=== PATIENT | female | born 1950 | race Caucasian/White ===

== ENCOUNTER → 2023-12-04 08:19 | Outpatient (REF) | payer MEDICARE, OTHER, SELFPAY | LOC: RAD 08:19 | PROVIDERS: ATTENDING PHYSICIAN Family Medicine | DX: M81.0 Age-related osteoporosis without current pathological fracture (principal) | CPT/HCPCS: 77080 ==

== ENCOUNTER → 2024-07-04 11:01 | Outpatient (REF) | payer OTHER, MEDICARE, SELFPAY | LOC: DHCBC/DCA 11:01 | PROVIDERS: ATTENDING PHYSICIAN Physician Assistant Medical; FAMILY PHYSICIAN Family Medicine | DX: R07.9 Chest pain, unspecified (principal); R06.09 Other forms of dyspnea | CPT/HCPCS: 78452; 93017; A9500 ==

== ENCOUNTER → 2024-07-11 22:00 | Outpatient (REF) | payer OTHER, MEDICARE, SELFPAY | LOC: DHSLP 22:00 | PROVIDERS: ATTENDING PHYSICIAN Physician Assistant Medical; FAMILY PHYSICIAN Family Medicine | DX: G47.30 Sleep apnea, unspecified (principal); R06.83 Snoring | CPT/HCPCS: 95800 ==

== ENCOUNTER → 2024-07-24 11:13 | Outpatient (REF) | payer OTHER, SELFPAY | LOC: HWRCS 11:13 | PROVIDERS: ATTENDING PHYSICIAN Physician Assistant Medical; FAMILY PHYSICIAN Family Medicine | DX: R07.9 Chest pain, unspecified (principal); R06.09 Other forms of dyspnea; Z85.3 Personal history of malignant neoplasm of breast | CPT/HCPCS: 93306 ==

== ENCOUNTER → 2024-11-04 06:53 | Outpatient (REF) | payer OTHER, SELFPAY | LOC: RAD 06:53 | PROVIDERS: ATTENDING PHYSICIAN Specialist; FAMILY PHYSICIAN Family Medicine | DX: N20.0 Calculus of kidney (principal) | CPT/HCPCS: 76775 ==

== ENCOUNTER → 2025-02-11 10:57 | Outpatient (REF) | payer OTHER, SELFPAY | LOC: RAD 10:57 | PROVIDERS: ATTENDING PHYSICIAN Internal Medicine Hematology & Oncology; FAMILY PHYSICIAN Family Medicine | DX: C50.911 Malignant neoplasm of unspecified site of right female breast (principal); C50.912 Malignant neoplasm of unspecified site of left female breast; M81.0 Age-related osteoporosis without current pathological fracture; Z79.811 Long term (current) use of aromatase inhibitors; C7A.011 Malignant carcinoid tumor of the jejunum | CPT/HCPCS: 71260; 74177; Q9967 ==

== ENCOUNTER → 2025-02-27 07:14 | Outpatient (REF) | payer OTHER, SELFPAY | LOC: MRI 07:14 | PROVIDERS: ATTENDING PHYSICIAN Internal Medicine Hematology & Oncology; FAMILY PHYSICIAN Family Medicine | DX: C50.911 Malignant neoplasm of unspecified site of right female breast (principal); C50.912 Malignant neoplasm of unspecified site of left female breast; C7A.011 Malignant carcinoid tumor of the jejunum; Z79.811 Long term (current) use of aromatase inhibitors; M81.0 Age-related osteoporosis without current pathological fracture; R93.5 Abnormal findings on diagnostic imaging of other abdominal regions, including retroperitoneum | CPT/HCPCS: 74183; A9575 ==

== ENCOUNTER → 2025-03-10 09:07 | Outpatient (REF) | payer OTHER, SELFPAY ==
[2025-03-10 09:30] LABS: Hematocrit 44.5 % (37.0-47.0); Hemoglobin 14.6 g/dL (12.0-16.0); Mean Corp Hgb Conc. 32.8 g/dL (33.0-37.0); Mean Corpuscular Volume 95.7 fL (81.0-99.0); Nucleated Red Blood Cells % 0 %; Platelet Count 293 10^3/uL (130-400); Red Cell Dist. Width 12.8 % (11.5-14.5)
[2025-03-10 09:40] LABS: INR 0.87; PT 12.2 Sec (11.4-14.6)
[2025-03-10 09:59] VITALS: BP 118/69; BP_SYST 71
[2025-03-10 11:25] VITALS: BP 107/68
== END ==
LOC: RADI 09:07
PROVIDERS: ATTENDING PHYSICIAN Internal Medicine Hematology & Oncology; FAMILY PHYSICIAN Family Medicine
DX: C78.7 Secondary malignant neoplasm of liver and intrahepatic bile duct (principal); R18.8 Other ascites; Z53.8 Procedure and treatment not carried out for other reasons; C50.911 Malignant neoplasm of unspecified site of right female breast; C50.912 Malignant neoplasm of unspecified site of left female breast
CPT/HCPCS: 36415; 76380; 76705; 85025; 85610

== ENCOUNTER 2025-03-10 22:49 | Observation (INO) | payer OTHER, SELFPAY ==
[2025-03-10 11:57] VITALS: BMI 26.5
[2025-03-10 12:00] VITALS: BP 116/63
--- NOTE | 2025-03-10 12:42 | ED.GENMED ---
History of Present Illness
General
Chief Complaint: Abdominal Symptoms
Source: patient and physician (IR Dr. Husain saw possible hemoperitoneum on limited CT)
Exam Limitations: none
Time Seen by Provider: 03/10/25 12:34
Nursing documentation reviewed up to this point in time: agreed with
History of Present Illness
History of Present Illness:
Note:
CHIEF COMPLAINT(S)
Concern for abnormal findings on imaging and history of hormonal treatment.
HISTORY OF PRESENT ILLNESS
The patient is a 57-year-old female who presents with concerns related to recent imaging findings and past hormonal treatments. Approximately a month ago, fluid was noted in the abdomen during imaging. There is a concern that the fluid, which may
appear as blood, needs further evaluation. A biopsy is planned to ascertain the nature of these findings.
The patient has a history of being on hormonal medication for several years and mentioned plans for a PET scan and CAT scan for further evaluation. The recent changes in her insurance have affected scheduling these tests; however, a new and more
detailed scan with contrast is planned. The patient is also concerned about possible liver involvement, as suggested by a recent CAT scan.
CARE-UPDATE
03/13/25 - 06:[address] scan indicates hemoperitoneum and possible subcapsular hematoma. Admission planned for further evaluation and management.
Physical Exam
General: no apparent distress, not acutely ill
Neck: supple. no meningeal signs. normal posterior pharynx
Heart: s1/s2 regular rate and rhythm, no murmur. equal radial
pulses.
HEENT: Pupils equal round reactive to light, EOMI
Lungs: no acute respiratory distress. clear bilaterally
Abdomen: normal bowel sounds. not tender. no CVAT
Neuro: alert and oriented. no focal neurological deficits cranial nerves II through XII intact
Skin: no rash
Psychiatric: well kept. interactive and cooperative
Extremities: no edema. no calf tenderness. negative homans. good distal pulses
Disposition:
SUMMARY OF ENCOUNTER
The patient presented with concerns related to recent imaging findings, revealing subcapsular hematoma of the liver. She was seen in the emergency department to further evaluate and manage these findings. A CT scan was performed, which showed a
subcapsular hematoma but no active bleeding. The patients condition was stable, and there was no indication for administration of vitamin K.
DISPOSITION
Admit.
ASSESSMENT
Subcapsular hematoma of the liver, as indicated by the CT scan findings.
INDEPENDENT REVIEW OF LABS AND INTERPRETATION OF TESTS
My independent interpretation of the abdominal CT scan indicates a subcapsular hematoma of the liver without active bleeding.
MANAGEMENT OF THE PATIENTS CARE WAS DISCUSSED WITH
Hospitalists for admission due to findings on CT.
PLAN
Admission arranged for further evaluation and management of the subcapsular hematoma. Further specialty care and monitoring to be coordinated with the hospital team.
DIAGNOSIS
1. Liver hematoma, unspecified - ICD-10: S36.119A
Past History
Past History
ED Past Medical History: Cancer (Breast cancer), HTN, Hypercholesterolemia, Hypothyroidism and Other (Right axillary neuropathy)
ED Past Surgical History: Gynecological (b/l Mastectomy with reconstruction, ) and Other (Abdominoplasty with breast reconstruction)
Social History
Tobacco: Non-smoker
Alcohol: Occasional
Drug: None
Personal:
Living: with family
Employment: Retired
Family History
Family History: CAD
Phy Exam
Physical Exam
Physical Exam:
.
Course
Orders/Labs/Results
Orders:
Orders
03/10/25 12:41
CT Abd/pelvis W Iv Cont Urgent
Comment: portal venous and delayed phase
Reason For Exam: abdominal pain, possible subcapsular hematoma
03/10/25 16:20
Comprehensive Metabolic Panel Urgent
03/10/25 21:35
PTT Urgent
Prothrombin Time Urgent
03/10/25 22:18
Admit/Transfer Patient As Directed
Co-Sign Provider:
Level of Care: Observation services
Assign to:: Medical/Surgical
Physician / Group: gardenia guthrie
Diagnosis: abd fluid conc hemoperitoneum vs hepatic lesion fluid,ovaries enlarged
Reason for Hospitalization: abd fluid conc hemoperitoneum vs hepatic lesion fluid,ovaries enlarged
Code Status As Directed
Resuscitation Status: Full Code
03/10/25 22:22
PRN Pain Medication Management As Directed
May give lesser potent ordered pain med per pt: Yes
preference::
Protocol:: Medication orders for pain may be administered in a
manner that supports deferring to patient preference
when the pt is:
-Requesting an ordered lesser potent pain medication.
Least to most potent pain medications are defined as:
acetaminophen < NSAID < tramadol < opioids (morphine,
oxycodone, hydromorphone).
- Requesting a lesser dose of the same medication IF
ORDERED.
- Requesting a less intrusive route of administration
if both routes are prescribed by the provider (PO <
IV).
03/10/25 22:26
[facility] CONSULT Routine
Consulting Provider: Leander Husain
Was physician already notified: Yes
Procedure being ordered, including laterality if applicable: liver mass needs biopsy
Acknowledgement that appropriate orders are entered: Yes
03/11/25 00:08
Activity As Directed
Activity Level: As Tolerated
Pneumatic Compression Sleeves As Directed
Type: Knee high
Vital Signs As Directed
Frequency: Per unit guidelines
DX Deep Vein Thrombosis Video Routine
03/11/25 06:00
Levothyroxine [Synthroid] 125 mcg PO DAILY @ 0600
03/11/25 07:45
Complete Blood Count/With Diff IN AM
Comprehensive Metabolic Panel IN AM
03/11/25 08:00
Gabapentin [Neurontin] 300 mg PO BID
Triamterene/Hctz [Dyazide] 1 capsule PO DAILY
03/11/25 12:00
Amlodipine [Norvasc] 2.5 mg PO NOON
03/11/25 Dinner
Regular
At Your Request: Full Participation
03/11/25 18:00
Atorvastatin [Lipitor] 80 mg PO QPM
Lisinopril [Zestril] 40 mg PO QPM
03/12/25 06:52
Complete Blood Count/With Diff IN AM
Comprehensive Metabolic Panel IN AM
Abnormal Lab Results
03/10/25
16:20
BUN 20 H mg/dl
(7-17)
Total Bilirubin 1.4 H mg/dl
(0.2-1.3)
03/10/25 21:35
03/10/25 16:20
Vital Signs
Initial and Last Documented VS:
Initial Vital Signs
Temp Pulse Resp BP Pulse Ox
97.6 F 67 16 116/63 97
03/10/25 12:00 03/10/25 12:00 03/10/25 12:00 03/10/25 12:00 03/10/25 12:00
Last Documented Vital Signs
Temp Pulse Resp BP Pulse Ox
98.1 F 78 16 125/73 98
03/12/25 12:21 03/12/25 12:21 03/12/25 12:21 03/12/25 12:21 03/12/25 12:21
*Pulse Oximetry
SaO2: 97
Oxygen Mode of Delivery: Room air
Patient hypoxic: no
*Critical Care Note
Total Time (30-74mins, 75-104mins- exclusive of procedures): Not Applicable
ED Attending Note
-
Portions of this chart may have been created with voice recognition software.� Occasional wrong word or��sound alike� substitutions may have occurred due to the inherent limitations of voice recognition software.
Discharge Plan
Departure
Patient Disposition: Admit
Date of Disposition: 03/10/25
Time of Disposition: 21:23
Presentation/result/management discussed w/ accepting MD/DO: Hospitalist
Patient with high blood pressure during this ER visit?: Yes
Condition: Good
Discharge Problem:
Subcapsular hematoma of liver
Interventions
Interventions:
*Risk Screen - Suicide Last Done: 03/10/25 12:52
*General Assessment Last Done: 03/10/25 12:52
*Neglect/Abuse Screening Last Done: 03/10/25 12:52
*ED- Fall Risk Assessment Last Done: 03/10/25 12:52
*ED COVID-19 Vaccine History Last Done: 03/10/25 12:52
*Nursing Disposition Last Done: 03/10/25 23:55
JJ-Vsxclc-Jegqgreuva Assessment Last Done: 03/10/25 23:30
Discharge Date and Time
Discharge Date/Time: 03/10/25 23:55
[2025-03-10 13:00] VITALS: BP 102/70
[2025-03-10 14:00] VITALS: BP 110/64
[2025-03-10 17:43] LABS: ALT (SGPT) 19 U/L (0-35); AST (SGOT) 18 U/L (14-36); Albumin 4.1 g/dl (3.5-5.0); Alkaline Phosphatase 69 U/L (38-126); Blood Urea Nitrogen 20 mg/dl (7-17); Calcium 9.4 mg/dl (8.4-10.2); Carbon Dioxide 22 mmol/L (22-30); Chloride 106 mmol/L (98-107); Estimated Creatinine Clearance 62 ml/min; Glucose 99 mg/dl (70-99); Potassium 3.8 mmol/L (3.5-5.1); Sodium 135 mmol/L (135-145); Total Protein 6.8 g/dl (6.3-8.2); eGFR > 60.00
[2025-03-10 20:58] VITALS: BP 115/86
[2025-03-10 21:30] VITALS: BP 114/65
--- NOTE | 2025-03-10 21:39 | HPS.HSE ---
Addendum entered and electronically signed by Andres Botello MD 03/10/25 23:01:
This is an addendum to the H&P written by Carolyn Moreland on 03/10/2025. �Patient seen and examined by me with [employer].
74-year-old female past medical history of breast cancer status post bilateral mastectomy in 2012 with reconstruction, hypertension, hyperlipidemia, hypothyroidism, right axillary neuropathy, presenting with epigastric pain.
Patient was diagnosed with breast cancer in 2012. �Patient had outpatient CT scan last month which showed ill-defined hepatic lesion which was new. �MRI from 02/27 showed multifocal hepatic metastatic disease and patient was supposed to get IR biopsy
today.
Vital signs unremarkable.
Labs show chronic leukocytosis of 12.8.
CT abdomen pelvis shows slightly increased fluid in the upper abdomen possibly hemoperitoneum. �Ascites from metastatic disease cannot be excluded. �Moderate small bowel wall thickening in the left abdomen pelvis possibly inflammation or infection
or ischemia (enteritis). �Mild diffuse bladder wall thickening.
Mildly enlarged ovaries with appearance of possible enhancing masses bilaterally.
Clinically patient with likely ascites from liver metastases could be metastatic from breast cancer. �No symptoms suggesting enteritis. �General surgery was consulted and recommended monitoring hemoglobin. �IR consulted for biopsy and or
paracentesis.
Check pelvic ultrasound to evaluate ovarian masses.
Original Note:
Family Physician
-
Family Physician: Maya Burns
Chief Complaint
-
abd pain
History of Present Illness
74-year-old female complaining of right upper to left upper abdominal pain today while at interventional radiology pending biopsy of a liver mass. She was sent over by IR due to a fluid collection on MRI from 911 for evaluation of hemoperitoneum.
She denies fever, chills, chest pain, palpitations, cough, shortness of breath, nausea, vomiting, diarrhea, urinary symptoms.
She has past medical history breast cancer status post bilateral mastectomy 2012 with reconstruction, HTN, HLD, hypothyroidism, right right axillary neuropathy prior alcohol abuse 3 to 4 glasses of wine a day stopped 1 month ago
Medical History
Past Medical History
Past Medical History: Reports Other
Additional Past Medical History:
breast cancer status post bilateral mastectomy 2012 with reconstruction
HTN
HLD
hypothyroidism
right right axillary neuropathy
prior alcohol abuse 3 to 4 glasses of wine a day stopped 1 month ago
Past Surgical History: Reports Other
Additional Past Surgical History:
section 1987
Right thyroidectomy 12/03/2007 bilateral breast biopsy December 2012
Bilateral mastectomy 01/11/2013 with reconstruction
Radiation and chemotherapy nodes removed right axillary
Lesion in small intestine benign removed by Dr. Jose Meza years ago
History of colonoscopy 2022 benign polypectomy
Social History
Tobacco: Non-smoker
Alcohol: Former (Drink 3 to 4 glasses of wine a day stopped 1 month ago January 2025)
Drug: None
Personal:
Living: With Family ()
Employment: Retired
Family History
Family History: Not pertinent
Allergies / Home Medications
Allergies reflects when Allergies were last updated in [facility].
Home Medications with original date entered in [facility]
Allergy/Medication List:
Allergies
Allergy/AdvReac Type Severity Reaction Status Date / Time
codeine (Codeine) Allergy difficulty Verified 03/10/25 12:05
breathing,
vision
blurring,
rapid heart
Home Medications
amlodipine 2.5 mg tablet 2.5 mg PO NOON ##0 12/29/15
atorvastatin 80 mg tablet 80 mg PO QPM High Cholesterol 07/06/23
gabapentin 300 mg capsule 300 mg PO BID mild Pain 07/06/23
lisinopril 40 mg tablet 40 mg PO QPM Blood Pressure 07/06/23
ibuprofen 200 mg tablet (Advil) 200 mg PO Q6HPRN PRN mild pain 03/10/25
levothyroxine 125 mcg tablet (Synthroid) 125 mcg PO DAILY 03/10/25
triamterene 37.5 mg-hydrochlorothiazide 25 mg tablet 1 tab PO DAILY 03/10/25
Review of Systems
-
History Source: Patient and Family ( at bedside )
A 12 point ROS was completed and negative except as noted: Yes
Constitutional: Denies Fever or Fatigue
EENT: Denies Sore Throat
Respiratory: Denies Cough or Trouble Breathing
Cardiac: Denies Chest Pain, Diaphoresis or Palpitations
Abdomen/GI: Reports Abdominal Pain (Across upper abdomen); Denies Nausea, Vomiting, Diarrhea or Constipated
: Denies Dysuria, Frequency, Flank Pain or Incontinence
Musculoskeletal: Denies Joint Pain or Edema
Skin: Denies Itching or Rash
Neurological: Denies Dizzy, Headache or Weakness
Endocrine: Reports No Symptoms
Hematologic/Lymphatic: Reports No Symptoms
Psych: Reports Calm
Physical Exam
Vital Signs
Vital Signs
Temp Pulse Resp BP Pulse Ox
97.6 F 85 20 115/86 98
03/10/25 12:00 03/10/25 20:58 03/10/25 20:58 03/10/25 20:58 03/10/25 20:58
Physical Exam
General: Comfortable and Conversant; No Pain, Fever or Chills
HEENT: NormoCephalic, Anicteric, Moist mucous membranes, Atraumatic, PERRLA, [place] Conjunctivae and No Ptosis
Respiratory: Clear; No Wheezes, Rales or Rhonchi
Cardiac: S1/S2 and Regular Rhythm; No Murmur, Rub, Gallop or Peripheral Edema
Breast: Deferred by me
GI: Soft, Non Distended, Normal Bowel Sounds and Tender (Across upper abdomen right and left)
Rectal: Deferred by Provider
Genito-urinary: Deferred by me
Musculoskeletal: No Clubbing, No Cyanosis and No Edema
Skin: Warm and Dry; No Rash
Neuro: AO x 3, No Motor Deficits, Nonfocal/grossly intact, Cranial Nerves Intact and No Sensory Deficits; No Slurred Speech, Facial Droop, Tremors or Sedated
Psych: Calm
Laboratory Results
-
03/10/25 16:20
Laboratory Results
Total Bilirubin 1.4 mg/dl (0.2-1.3) H 03/10/25 16:20
AST 18 U/L (14-36) 03/10/25 16:20
ALT 19 U/L (0-35) 03/10/25 16:20
Alkaline Phosphatase 69 U/L (38-126) 03/10/25 16:20
Impression/Plan
-
Impression/plan:
Admit to MedSurg
#Epigastric pain likely due to hemoperitoneum versus fluid from hepatic metastases
- Hgb 14.6 will monitor H&H
- Check coags
- Consult IR for biopsy of hepatic lesion
CT abdomen pelvis with IV contrast:
1. Slightly increased fluid in the upper abdomen possibly hemoperitoneum as suggested
before. Mild free fluid in the pelvis likely the same etiology.
2. Ascites from metastatic disease cannot be excluded.
3. Moderate small bowel wall thickening in the left abdomen and pelvis.
Differential diagnoses include inflammation, infection and ischemia.
4. Bilateral too small to contrast hypodense renal lesions likely benign cysts.
5. Mild diffuse bladder wall thickening. This can be seen with cystitis and bladder
outlet obstruction
6. Mildly enlarged ovaries with appearance of possible enhancing masses bilaterally.
Nonurgent pelvic ultrasound recommended when the patient is able.
7. New fluid now present in a small stable fat containing diaphragmatic hernia.
#Multifocal hepatic metastatic disease
Patient was due for IR biopsy today however CT was concerning for hemoperitoneum so was held off.
MRI 02/27/2025:
1. MULTIFOCAL HEPATIC METASTATIC DISEASE (largest 2.7 cm in the medial segment of the left lobe).
2. Mild hepatomegaly.
3. Mild chronic bilateral renal disease.
4. Severe discogenic degenerative disease at L5/S1.
#Chronic leukocytosis
WBC 12.8 appears baseline for patient
#HTN
Continue amlodipine 2.5 mg at noon, continue atorvastatin 80 mg every afternoon
Continue triamterene/HCTZ
#HLD
- Continue atorvastatin 80 mg every afternoon
#Hypothyroidism status post right thyroidectomy
- Continue levothyroxine 125 mcg p.o. daily
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
DVT prophylaxis
SCDs
Full code
[2025-03-10 22:16] LABS: INR 0.97; PT 13.2 Sec (11.4-14.6)
[2025-03-10 22:17] LABS: APTT 28.9 Sec (23.4-35.0)
[2025-03-10 23:17] VITALS: BP 118/57
[2025-03-11 00:02] LABS: Hematocrit 37.4 % (37.0-47.0); Hemoglobin 13.0 g/dL (12.0-16.0)
[2025-03-11 00:05] VITALS: BP 128/65; BMI 26.0
[2025-03-11] MEDS: TYLENOL 650 MG PO ×3 (00:38→17:57)
[2025-03-11] MEDS: SYNTHROID 125 MCG PO (05:45)
[2025-03-11 06:58] VITALS: BP 105/65
[2025-03-11] MEDS: NEURONTIN 300 MG PO ×2 (08:13→20:11)
[2025-03-11 08:42] LABS: Hematocrit 34.0 % (37.0-47.0); Hemoglobin 11.7 g/dL (12.0-16.0); Mean Corp Hgb Conc. 34.4 g/dL (33.0-37.0); Mean Corpuscular Volume 92.9 fL (81.0-99.0); Nucleated Red Blood Cells % 0 %; Platelet Count 262 10^3/uL (130-400); Red Cell Dist. Width 12.9 % (11.5-14.5)
[2025-03-11 08:52] LABS: ALT (SGPT) 16 U/L (0-35); AST (SGOT) 16 U/L (14-36); Albumin 4.0 g/dl (3.5-5.0); Alkaline Phosphatase 70 U/L (38-126); Blood Urea Nitrogen 16 mg/dl (7-17); Calcium 9.0 mg/dl (8.4-10.2); Carbon Dioxide 22 mmol/L (22-30); Chloride 107 mmol/L (98-107); Estimated Creatinine Clearance 62 ml/min; Glucose 100 mg/dl (70-99); Potassium 3.8 mmol/L (3.5-5.1); Sodium 138 mmol/L (135-145); Total Protein 6.2 g/dl (6.3-8.2); eGFR > 60.00
[2025-03-11] MEDS: DYAZIDE 1 CAPSULE PO (08:57)
[2025-03-11 09:45] LABS: Hepatitis C Antibody Negative (Negative)
--- NOTE | 2025-03-11 11:28 | W.PN.HOSP.TC ---
Today's Communication/Plan
-
Assessment / Plan
Assessment / Plan
General: No Apparent Distress, Comfortable and Conversant
HEENT: NormoCephalic, Moist mucous membranes, Atraumatic
Respiratory: Clear and Non Labored Respirations
Cardiac: S1/S2 and Regular Rhythm; No Rub or Gallop
GI: Soft, Non Tender, Non Distended and Normal Bowel Sounds
Musculoskeletal: No Edema, no deformity
Skin: Warm and dry
: NO [place]
Neuro: Awake, Alert, Nonfocal/grossly intact
Psych: Calm and Intact Judgment/Insight
Ms. Payne is a 74-year-old female with a medical history of breast cancer (status post bilateral mastectomy 2012 with reconstruction, chemo and radiation), hypertension, partial thyroidectomy (12/03/2007), acquired hypothyroidism, left obstructing
UPJ stone (06/2023, status post lithotripsy and stent), and hyperlipidemia who presented from outpatient IR due to concern for hemoperitoneum. She was scheduled for an IR biopsy of suspicious liver lesions noted on MRI 02/27/2025. However imaging in
the IR suite showed fluid around her liver and so biopsy was canceled. She was sent to the ED for further evaluation and was subsequently admitted to monitor her hemoglobin levels and management of possible hemoperitoneum.
Abdominal fluid:
- Concern for possible hemoperitoneum, alternatively could be malignant ascites
- Monitoring hemoglobin levels which have dropped from 14.6-11.7 in the past 24 hours although this is likely at least somewhat dilutional considering she has been given IV fluids
- Continue serial H&H, transfuse as needed
- If hemoglobin continues to drop we will check CT angiography of abdomen and pelvis
- Currently no plan for biopsy considering possibility of active bleeding
- Pelvic ultrasound pending for further evaluation of abnormalities on bilateral ovaries noted during CT imaging
History of breast cancer:
- Status post bilateral mastectomy 2012 with reconstruction, chemotherapy and radiation
- MRI on 02/27/2025 showed multifocal hepatic lesions concerning for malignancy
- IR biopsy canceled due to concern for bleeding as described above
- Will need outpatient oncology follow-up, biopsy as able
Hypertension:
- Chronic
- Holding home antihypertensive agents (amlodipine 2.5 mg, lisinopril 40 mg, triamterene-HCTZ) due to current hypotension, will restart as needed
Hypothyroidism:
- Acquired, status post partial thyroidectomy 12/03/2007
- Continue home levothyroxine 125 mcg daily
DVT prophylaxis: SCDs due to concern for bleeding
CODE STATUS: Full code
Total time spent on today's encounter was 56 minutes.
Anticipated Discharge: 24 - 48 hours
Subjective/Interval History
-
Date of Service: March 11, 2025
Patient was seen and examined at bedside this morning. Currently not having any abdominal pain. Her hemoglobin did drop to 11.7 this morning. Holding off on IR for biopsy due to fluid collection around her liver.
Objective Data
-
Labs:
Laboratory Results
03/10/25 03/10/25 03/11/25
21:35 23:46 07:45
WBC 8.1
Hgb Cancelled 13.0 11.7 L
Hct Cancelled 37.4 34.0 L
Plt Count 262
Sodium 138
Potassium 3.8
Chloride 107
Carbon Dioxide 22
BUN 16
Creatinine 0.7
Glucose 100 H
Calcium 9.0
Total Bilirubin 1.3
AST 16
ALT 16
Alkaline Phosphatase 70
Vital Signs:
Vital Signs
Temp Pulse Resp BP Pulse Ox
97.9 F 66 16 100/63 98
03/11/25 06:58 03/11/25 11:17 03/11/25 06:58 03/11/25 11:17 03/11/25 06:58
I&O
03/10/25 03/11/25 03/12/25
06:59 06:59 06:59
Intake Total 120 / 120
Balance 120 / 120
Review of Systems
-
History Source: Patient
All other systems: Reviewed and negative
Physical Exam
-
General: No Apparent Distress
[2025-03-11 12:24] LABS: Hematocrit 35.1 % (37.0-47.0); Hemoglobin 11.9 g/dL (12.0-16.0)
[2025-03-11 15:37] VITALS: BP 121/67
--- NOTE | 2025-03-11 15:48 | CM ---
Addendum entered by Susan Ross 03/11/25 15:54:
PCP: Maya Burns
Rx: [facility]
Original Note:
IA completed. FRIAS given and placed on chart. Pt lives in 2-story home with spouse, there is 1 step at the entrance to the home and 13 steps inside the home. BR is on 2nd floor; half bath on first floeer. Independent in ADLs and IADLs.NO hx of HH,
SNF or DME. No insecurities identified. Confirmed PCP, Rx, insurance and drug coverage
Plan: Home with no needs
[2025-03-11] MEDS: LIPITOR 80 MG PO (17:24)
[2025-03-11 23:34] VITALS: BP 110/63
[2025-03-12 01:14] LABS: Hematocrit 31.5 % (37.0-47.0); Hemoglobin 11.0 g/dL (12.0-16.0)
[2025-03-12] MEDS: SYNTHROID 125 MCG PO (05:54)
[2025-03-12 07:00] VITALS: BP 119/69
[2025-03-12 07:21] LABS: Hematocrit 34.5 % (37.0-47.0); Hemoglobin 11.7 g/dL (12.0-16.0); Mean Corp Hgb Conc. 33.9 g/dL (33.0-37.0); Mean Corpuscular Volume 93.2 fL (81.0-99.0); Nucleated Red Blood Cells % 0 %; Platelet Count 252 10^3/uL (130-400); Red Cell Dist. Width 12.6 % (11.5-14.5)
[2025-03-12 07:38] LABS: ALT (SGPT) 22 U/L (0-35); AST (SGOT) 21 U/L (14-36); Albumin 4.0 g/dl (3.5-5.0); Alkaline Phosphatase 68 U/L (38-126); Blood Urea Nitrogen 18 mg/dl (7-17); Calcium 9.5 mg/dl (8.4-10.2); Carbon Dioxide 25 mmol/L (22-30); Chloride 106 mmol/L (98-107); Estimated Creatinine Clearance 62 ml/min; Glucose 109 mg/dl (70-99); Potassium 3.6 mmol/L (3.5-5.1); Sodium 138 mmol/L (135-145); Total Protein 6.6 g/dl (6.3-8.2); eGFR > 60.00
[2025-03-12] MEDS: NEURONTIN 300 MG PO (07:46)
[2025-03-12] MEDS: TYLENOL 650 MG PO (07:46)
--- NOTE | 2025-03-12 11:50 | W.DCSUMMARY ---
Discharge Summary
Discharge Data
Date of Admission: 03/10/25
Date of Discharge: 03/12/25
Total time spent discharging patient (in min): 49
-
Pending Results: No
Hospital Course
Ms. Brown is a 74-year-old female with a medical history of breast cancer (status post bilateral mastectomy 2012 with reconstruction, chemo and radiation), hypertension, partial thyroidectomy (12/03/2007), acquired hypothyroidism, left obstructing
UPJ stone (06/2023, status post lithotripsy and stent), and hyperlipidemia who presented from outpatient IR due to concern for hemoperitoneum. She was scheduled for an IR biopsy of suspicious liver lesions noted on MRI 02/27/2025. However imaging in
the IR suite showed fluid around her liver and so biopsy was canceled. She was sent to the ED for further evaluation and was subsequently admitted to monitor her hemoglobin levels and for management of possible hemoperitoneum.
She likely had some amount of intra-abdominal bleeding which appears to have resolved spontaneously. Her hemoglobin level did drop from 14.6 initially to 11.7 where it subsequently remained stable. She did not require any blood transfusions. She
had some upper abdominal discomfort which improved but did not completely resolve. Her blood pressure was on the lower side and so her home antihypertensive medications were held. Her blood pressure medications will continue to be held at
discharge. She will need to follow-up with her primary care physician regarding ongoing blood pressure monitoring and restarting her antihypertensive medications if needed. She will need to follow-up closely with her primary oncologist (Dr. Valentin
Yogi) for ongoing management including follow-up blood work and imaging. She will need imaging for further evaluation of her ovaries which appeared abnormal on CT imaging at the time of this admission. At the time of hospital discharge she was
medically stable. She has been instructed to take oral iron supplementation to help with her anemia. She was also instructed to go to the nearest emergency department or call 911 if she develops symptoms of worsening anemia such as dizziness,
lightheadedness, or an abrupt drop in her blood pressure.
General: No Apparent Distress, Comfortable and Conversant
HEENT: NormoCephalic, Moist mucous membranes, Atraumatic
Respiratory: Clear and Non Labored Respirations
Cardiac: S1/S2 and Regular Rhythm; No Rub or Gallop
GI: Soft, Non Tender, Non Distended and Normal Bowel Sounds
Musculoskeletal: No Edema, no deformity
Skin: Warm and dry
: NO [place]
Neuro: Awake, Alert, Nonfocal/grossly intact
Psych: Calm and Intact Judgment/Insight
Discharge Plan
-
Patient Disposition: Home (Routine Discharge)
Discharge Diagnosis/Procedures: Hemoperitoneum
Activity Restrictions/Additional Instructions:
Ms. Brown is a 74-year-old female with a medical history of breast cancer (status post bilateral mastectomy 2012 with reconstruction, chemo and radiation), hypertension, partial thyroidectomy (12/03/2007), acquired hypothyroidism, left obstructing
UPJ stone (06/2023, status post lithotripsy and stent), and hyperlipidemia who presented from outpatient IR due to concern for hemoperitoneum. She was scheduled for an IR biopsy of suspicious liver lesions noted on MRI 02/27/2025. However imaging in
the IR suite showed fluid around her liver and so biopsy was canceled. She was sent to the ED for further evaluation and was subsequently admitted to monitor her hemoglobin levels and management of possible hemoperitoneum.
She likely had some amount of intra-abdominal bleeding which appears to have resolved spontaneously. Her hemoglobin level did drop from 14.6 initially to 11.7 where it subsequently remained stable. She did not require any blood transfusions. She
had some upper abdominal discomfort which improved but did not completely resolved. Her blood pressure was on the lower side and so her home antihypertensive medications were held. Her blood pressure medications will continue to be held at
discharge. She will need to follow-up with her primary care physician regarding ongoing blood pressure monitoring and restarting her antihypertensive medications if needed. She will need to follow-up closely with her primary oncologist (Dr. Valentin
Yogi) for ongoing management including follow-up blood work and imaging. She will need imaging for further evaluation of her ovaries which appeared abnormal on CT imaging at the time of this admission. At the time of hospital discharge she was
medically stable. She has been instructed to take oral iron supplementation to help with her anemia. She was also instructed to go to the nearest emergency department or call 911 if she develops symptoms of worsening anemia such as dizziness,
lightheadedness, or an abrupt drop in her blood pressure.
Referrals:
Barbie Calix MD [Active, Oncology]
Maya Burns DO [Family Provider, Family Practice]
Prescriptions:
New
ferrous gluconate 236 mg (27 mg iron) tablet
236 mg PO DAILY Qty: 30 0RF
Continued
atorvastatin 80 mg Tablet
80 mg PO QPM
gabapentin 300 mg Capsule
300 mg PO BID
levothyroxine [Synthroid] 125 mcg Tablet
125 mcg PO DAILY
Held
amlodipine 2.5 MG tablet
2.5 mg PO NOON Qty: 0 0RF
Hold Instructions: Hold blood pressure medications for now due to low blood pressure, restart as needed after consultation with your primary care physician
lisinopril 40 mg Tablet
40 mg PO QPM
Hold Instructions: Hold blood pressure medications for now due to low blood pressure, restart as needed after consultation with your primary care physician
ibuprofen [Advil] 200 mg Tablet
200 mg PO Q6HPRN PRN (Reason: mild pain)
Hold Instructions: Take Tylenol for pain rather than NSAIDs due to increased bleeding risk associated with NSAIDs
triamterene-hydrochlorothiazid 37.5-25 mg Tablet
1 tab PO DAILY
Hold Instructions: Hold blood pressure medications for now due to low blood pressure, restart as needed after consultation with your primary care physician
Discharge Orders:
Discharge Patient (As Directed); Ordered 03/12/25
Ordered By: Marquez William
Discharge Date and Time
Print Language: FRENCH
[2025-03-12 12:21] VITALS: BP 125/73
--- NOTE | 2025-03-12 12:34 | CM ---
Pt DC'd to home no needs. Transportation provided by in [private car
== END 2025-03-12 12:40 | disposition home or self-care (01) ==
LOC: 4 EAST ACU 22:49
PROVIDERS: Clinical Nurse Specialist Family Health; Emergency Medicine; ADMITTING PHYSICIAN Hospitalist; ATTENDING PHYSICIAN Internal Medicine; EMERGENCY PHYSICIAN Emergency Medicine; FAMILY PHYSICIAN Family Medicine
DX: R10.9 Unspecified abdominal pain (principal); R18.8 Other ascites; E78.00 Pure hypercholesterolemia, unspecified; D64.9 Anemia, unspecified; D72.829 Elevated white blood cell count, unspecified; N32.89 Other specified disorders of bladder; I10 Essential (primary) hypertension; C78.7 Secondary malignant neoplasm of liver and intrahepatic bile duct; E89.0 Postprocedural hypothyroidism; K44.9 Diaphragmatic hernia without obstruction or gangrene; R16.0 Hepatomegaly, not elsewhere classified; N28.9 Disorder of kidney and ureter, unspecified; M51.379 Other intervertebral disc degeneration, lumbosacral region without mention of lumbar back pain or lower extremity pain; I95.9 Hypotension, unspecified; G62.9 Polyneuropathy, unspecified; Z85.3 Personal history of malignant neoplasm of breast; Z82.49 Family history of ischemic heart disease and other diseases of the circulatory system; Z90.13 Acquired absence of bilateral breasts and nipples; Z79.890 Hormone replacement therapy; Z79.899 Other long term (current) drug therapy; Z92.21 Personal history of antineoplastic chemotherapy; Z92.3 Personal history of irradiation; Z88.5 Allergy status to narcotic agent; Z87.442 Personal history of urinary calculi
CPT/HCPCS: 74177; 80053; 85014; 85018; 85025; 85610; 85730; 86803; 99285; G0378; Q9967

== ENCOUNTER 2025-03-21 06:57 | Outpatient (REF) | payer OTHER, SELFPAY ==
[2025-03-21] VITALS (14 sets, daily range): BP systolic 56–156; BP diastolic 62–81
[2025-03-21 07:42] LABS: Hematocrit 34.9 % (37.0-47.0); Hemoglobin 11.6 g/dL (12.0-16.0); Mean Corp Hgb Conc. 33.2 g/dL (33.0-37.0); Mean Corpuscular Volume 95.4 fL (81.0-99.0); Platelet Count 262 10^3/uL (130-400); Red Cell Dist. Width 12.8 % (11.5-14.5)
[2025-03-21 08:02] LABS: INR 1.01; PT 13.6 Sec (11.4-14.6)
== END 2025-03-21 13:35 | disposition home or self-care (01) ==
LOC: RADI 06:57
PROVIDERS: ATTENDING PHYSICIAN Internal Medicine Hematology & Oncology; FAMILY PHYSICIAN Family Medicine
DX: C7B.8 Other secondary neuroendocrine tumors (principal); C50.911 Malignant neoplasm of unspecified site of right female breast; C50.912 Malignant neoplasm of unspecified site of left female breast
CPT/HCPCS: 36415; 47000; 77012; 85027; 85610; 88307; 88333; 88341; 88342; 99152; 99153

== ENCOUNTER → 2025-04-14 14:02 | Outpatient (REF) | payer OTHER, SELFPAY | LOC: HWRAD 14:02 | PROVIDERS: ATTENDING PHYSICIAN Internal Medicine Hematology & Oncology; FAMILY PHYSICIAN Family Medicine | DX: C78.7 Secondary malignant neoplasm of liver and intrahepatic bile duct (principal) | CPT/HCPCS: 76830; 76856 ==

== ENCOUNTER → 2025-05-18 07:16 | Outpatient (REF) | payer OTHER, SELFPAY | LOC: MRI 3T 07:16 | PROVIDERS: ATTENDING PHYSICIAN Internal Medicine Hematology & Oncology; FAMILY PHYSICIAN Family Medicine | DX: C78.7 Secondary malignant neoplasm of liver and intrahepatic bile duct (principal); C50.911 Malignant neoplasm of unspecified site of right female breast; C50.912 Malignant neoplasm of unspecified site of left female breast; C7A.011 Malignant carcinoid tumor of the jejunum | CPT/HCPCS: 70543; 70553; A9575 ==